=== PATIENT | female | born 1960 | race Caucasian/White ===

== ENCOUNTER 2022-09-04 09:32 | Outpatient (CLI) | payer OTHER | END 2022-09-04 09:33 | disposition home or self-care (01) | LOC: RAD 09:32 | PROVIDERS: ATTEND Internal Medicine Critical Care Medicine | DX: R06.00 Dyspnea, unspecified (principal); R91.8 Other nonspecific abnormal finding of lung field | CPT/HCPCS: 71046 ==

== ENCOUNTER 2023-02-13 02:41 | Inpatient (IN) | payer OTHER, MEDICARE, MEDICAID ==
[2023-02-13 04:09] VITALS: BMI 20.1
[2023-02-13] MEDS ORDERED: Ondansetron PF 4 MG/2 ML Vial IVP PRN (04:12)
[2023-02-13] MEDS ORDERED: Dextrose 50% Abboject 50 ML SYRINGE SLOW IVP PRN (04:12)
[2023-02-13] MEDS ORDERED: Ondansetron ODT 4 MG TAB PO PRN (04:12)
[2023-02-13] MEDS ORDERED: Acetaminophen 650 MG Suppository PR PRN (04:12)
[2023-02-13] MEDS ORDERED: Dextrose 5% in Water 1,000 ML IV PRN (04:12)
[2023-02-13] MEDS ORDERED: Glucagon 1 MG/ML KIT IM PRN (04:12)
[2023-02-13] MEDS: HumaLOG 300 UNITS/3 ML VIAL SC PRN ×4 (04:28→23:07)
[2023-02-13] MEDS ORDERED: Ipratropium/Albuterol 3 ML NEB NEB PRN (06:06)
[2023-02-13] MEDS: Insulin Glargine 30 UNITS/0.3 ML VIAL SC SCH ×3 (06:27→21:47)
[2023-02-13] MEDS ORDERED: Ipratropium/Albuterol 3 ML NEB NEB SCH (06:30)
[2023-02-13 07:37] LABS: #Monocytes 0.6 thou/uL (0.11-0.59); #Neutrophils 5.9 thou/uL (1.40-6.50); %Basophils 0.4 % (0.0-1.0); %Lymphocytes 7.2 % (21.0-51.0); %Neutrophils 84.3 % (42.0-75.0); Hemoglobin 8.5 g/dL (12.0-16.0); Mean Corpuscular HGB CONC 30.4 g/dL (32.0-36.0); Mean Corpuscular Hemoglobin 30.2 pg (27.0-31.0); Mean Corpuscular Volume 99.6 fl (78.0-98.0); Platelet Count 179 10x3/uL (130-400); RBC Distribution Width 14.6 % (11.5-14.5); Red Blood Cell (RBC) Count 2.81 mill/uL (4.20-5.40)
[2023-02-13] MEDS ORDERED: HumaLOG 300 UNITS/3 ML VIAL SC PRN (07:50)
[2023-02-13 08:00] LABS: Anion Gap 17 mmol/L (10-20); BUN (Urea Nitrogen) 45 mg/dL (9.8-20.1); Calc. Creatinine Clearance 12 mL/min (70-130); Calcium 7.9 mg/dL (7.8-10.44); Carbon Dioxide 19 mmol/L (23-31); Chloride 103 mmol/L (98-107); Estimated GFR 11; Iron 31 ug/dL (50-170); Iron Binding Capacity, Total 181 mcg/dL (265-497); Potassium 4.3 mmol/L (3.5-5.1); Sodium 135 mmol/L (136-145)
[2023-02-13 08:02] LABS: Troponin I 0.084 ng/mL (< 0.028)
[2023-02-13 08:08] LABS: Glucose 436 mg/dL (80-115)
[2023-02-13] MEDS: Budesonide 0.5 MG/2 ML NEB NEB SCH ×3 (08:15→18:50)
[2023-02-13] MEDS ORDERED: Arformoterol 15 MCG/2 ML NEB NEB SCH ×2 (08:30→18:30)
[2023-02-13] MEDS: Heparin 5,000 UNITS/ML VIAL SC SCH ×3 (08:58→20:58)
[2023-02-13] MEDS ORDERED: methylPREDNISolone Sod Succ 40 MG VIAL IVP SCH (09:00)
[2023-02-13] MEDS: Ipratropium/Albuterol 3 ML NEB NEB SCH ×5 (10:55→21:35)
[2023-02-13 11:56] LABS: HBSAB Concentration 12.49 mIU/mL; Hep B Surf AB Reactive (NonReactive)
[2023-02-13] MEDS: methylPREDNISolone Sod Succ 40 MG VIAL IVP SCH ×3 (11:56→23:02)
[2023-02-13 11:59] LABS: HBSAg Index 0.22 S/CO (0-0.99); Hep B Core Total Ab Non-Reactive (NonReactive); Hep B Core Total Index 0.07 S/CO (0-0.79); Hep B Surf Ag Non-Reactive S/CO (NonReactive)
[2023-02-13 12:02] LABS: Hep C IgG Ab Non-Reactive S/CO (NonReactive); Hep C Index 0.06 S/CO (0-0.79)
[2023-02-13] MEDS ORDERED: Morphine 2 MG/ML VIAL SLOW IVP PRN (18:25)
[2023-02-13] MEDS: Gabapentin 300 MG CAP PO SCH (20:57)
[2023-02-13] MEDS: cefTRIAXone\\ROCEPHIN 1 GM in Sodium Chloride 0.9% 100 ML IVPB SCH (20:58)
[2023-02-13] MEDS ORDERED: Azithromycin 500 MG in Sodium Chloride 0.9% 250 ML 250 ML IVPB SCH (21:00)
[2023-02-13] MEDS ORDERED: Azithromycin 250 MG TAB PO SCH (21:30)
[2023-02-14] MEDS: Ipratropium/Albuterol 3 ML NEB NEB SCH ×4 (00:28→10:41)
[2023-02-14 03:58] LABS: #Monocytes 0.8 thou/uL (0.11-0.59); #Neutrophils 9.6 thou/uL (1.40-6.50); %Basophils 0.2 % (0.0-1.0); %Lymphocytes 4.6 % (21.0-51.0); %Monocytes 7.4 % (0.0-10.0); %Neutrophils 87.3 % (42.0-75.0); Hematocrit 28.9 % (36.0-47.0); Mean Corpuscular HGB CONC 31.1 g/dL (32.0-36.0); Mean Corpuscular Hemoglobin 30.2 pg (27.0-31.0); Mean Platelet Volume 11.1 fL (7.4-10.4); Platelet Count 177 10x3/uL (130-400); RBC Distribution Width 14.7 % (11.5-14.5); Red Blood Cell (RBC) Count 2.98 mill/uL (4.20-5.40)
[2023-02-14 04:22] LABS: Anion Gap 12 mmol/L (10-20); BUN (Urea Nitrogen) 31 mg/dL (9.8-20.1); Calc. Creatinine Clearance 16 mL/min (70-130); Calcium 8.1 mg/dL (7.8-10.44); Carbon Dioxide 25 mmol/L (23-31); Chloride 101 mmol/L (98-107); Estimated GFR 15; Glucose 184 mg/dL (80-115); Sodium 134 mmol/L (136-145)
[2023-02-14] MEDS: methylPREDNISolone Sod Succ 40 MG VIAL IVP SCH ×3 (05:41→21:18)
[2023-02-14] MEDS: HumaLOG 300 UNITS/3 ML VIAL SC PRN ×2 (05:47→12:02)
[2023-02-14] MEDS: Budesonide 0.5 MG/2 ML NEB NEB SCH (07:09)
[2023-02-14] MEDS ORDERED: EPOETIN ALFA-EPBX (ESRD) 10,000 UNITS/ML VIAL IVP SCH (09:00)
[2023-02-14] MEDS ORDERED: Heparin 10,000 UNITS/ 10 ML VIAL ONE (09:02)
[2023-02-14] MEDS: hydrALAZINE 25 MG TAB PO SCH ×3 (10:54→21:28)
[2023-02-14] MEDS: Sertraline 100 MG TAB PO SCH (10:55)
[2023-02-14] MEDS: Gabapentin 300 MG CAP PO SCH ×2 (10:55→21:27)
[2023-02-14] MEDS: Insulin Glargine 30 UNITS/0.3 ML VIAL SC SCH ×2 (10:55→21:28)
[2023-02-14] MEDS: Magnesium Oxide 250 MG TAB PO SCH (10:55)
[2023-02-14] MEDS: Heparin 5,000 UNITS/ML VIAL SC SCH ×3 (10:56→21:28)
[2023-02-14] MEDS ORDERED: Ipratropium/Albuterol 3 ML NEB NEB PRN (11:00)
[2023-02-14] MEDS: Epoetin (ESRD) 10,000 UNITS/ML VIAL IVP SCH (14:40)
[2023-02-14] MEDS: cefTRIAXone\\ROCEPHIN 1 GM in Sodium Chloride 0.9% 100 ML IVPB SCH (21:14)
[2023-02-14] MEDS: Acetaminophen 325 MG TAB PO PRN (21:40)
[2023-02-14] MEDS: Azithromycin 500 MG in Sodium Chloride 0.9% 250 ML 250 ML IVPB SCH (21:43)
[2023-02-15] MEDS: methylPREDNISolone Sod Succ 40 MG VIAL IVP SCH ×3 (02:10→20:38)
[2023-02-15] MEDS: HumaLOG 300 UNITS/3 ML VIAL SC PRN ×2 (06:40→13:53)
[2023-02-15 06:54] LABS: #Monocytes 0.3 thou/uL (0.11-0.59); #Neutrophils 9.9 thou/uL (1.40-6.50); %Basophils 0.2 % (0.0-1.0); %Lymphocytes 5.2 % (21.0-51.0); %Monocytes 3.1 % (0.0-10.0); Hematocrit 31.8 % (36.0-47.0); Mean Corpuscular HGB CONC 31.4 g/dL (32.0-36.0); Mean Corpuscular Hemoglobin 30.9 pg (27.0-31.0); Mean Corpuscular Volume 98.1 fl (78.0-98.0); Mean Platelet Volume 11.1 fL (7.4-10.4); Platelet Count 202 10x3/uL (130-400); RBC Distribution Width 14.7 % (11.5-14.5); Red Blood Cell (RBC) Count 3.24 mill/uL (4.20-5.40); White Blood Cell (WBC) Count 10.9 10x3/uL (4.8-10.8)
[2023-02-15 07:19] LABS: Anion Gap 13 mmol/L (10-20); BUN (Urea Nitrogen) 27 mg/dL (9.8-20.1); Calc. Creatinine Clearance 17 mL/min (70-130); Calcium 8.2 mg/dL (7.8-10.44); Carbon Dioxide 26 mmol/L (23-31); Chloride 98 mmol/L (98-107); Estimated GFR 16; Glucose 226 mg/dL (80-115); Potassium 4.4 mmol/L (3.5-5.1); Sodium 133 mmol/L (136-145)
[2023-02-15] MEDS: Magnesium Oxide 250 MG TAB PO SCH (08:33)
[2023-02-15] MEDS: hydrALAZINE 25 MG TAB PO SCH ×3 (08:33→20:36)
[2023-02-15] MEDS: Heparin 5,000 UNITS/ML VIAL SC SCH ×3 (08:34→20:37)
[2023-02-15] MEDS: Sertraline 100 MG TAB PO SCH (08:34)
[2023-02-15] MEDS: Gabapentin 300 MG CAP PO SCH ×2 (08:34→20:36)
[2023-02-15] MEDS: Insulin Glargine 30 UNITS/0.3 ML VIAL SC SCH ×2 (08:35→20:39)
[2023-02-15] MEDS: Ipratropium/Albuterol 3 ML NEB NEB SCH ×2 (12:23→18:48)
[2023-02-15] MEDS: Nicotine 14 MG PATCH TD SCH (12:44)
[2023-02-15] MEDS: cefTRIAXone\\ROCEPHIN 1 GM in Sodium Chloride 0.9% 100 ML IVPB SCH (20:29)
[2023-02-15] MEDS: Acetaminophen 325 MG TAB PO PRN (20:38)
[2023-02-15] MEDS: Azithromycin 500 MG in Sodium Chloride 0.9% 250 ML 250 ML IVPB SCH (21:18)
[2023-02-16] MEDS: Ipratropium/Albuterol 3 ML NEB NEB SCH ×3 (01:33→15:20)
[2023-02-16] MEDS: Acetaminophen 325 MG TAB PO PRN (05:36)
[2023-02-16] MEDS: HumaLOG 300 UNITS/3 ML VIAL SC PRN ×2 (05:37→16:53)
[2023-02-16 06:49] LABS: Anion Gap 15 mmol/L (10-20); BUN (Urea Nitrogen) 49 mg/dL (9.8-20.1); Calc. Creatinine Clearance 12 mL/min (70-130); Calcium 8.2 mg/dL (7.8-10.44); Carbon Dioxide 25 mmol/L (23-31); Chloride 98 mmol/L (98-107); Estimated GFR 10; Glucose 265 mg/dL (80-115); Potassium 4.6 mmol/L (3.5-5.1); Sodium 133 mmol/L (136-145)
[2023-02-16] MEDS: Sertraline 100 MG TAB PO SCH (08:17)
[2023-02-16] MEDS: Gabapentin 300 MG CAP PO SCH (08:17)
[2023-02-16] MEDS: hydrALAZINE 25 MG TAB PO SCH ×2 (08:17→15:16)
[2023-02-16] MEDS: Heparin 5,000 UNITS/ML VIAL SC SCH ×2 (08:18→15:16)
[2023-02-16] MEDS: Magnesium Oxide 250 MG TAB PO SCH (08:18)
[2023-02-16] MEDS: Insulin Glargine 30 UNITS/0.3 ML VIAL SC SCH (08:18)
[2023-02-16] MEDS: methylPREDNISolone Sod Succ 40 MG VIAL IVP SCH (08:19)
[2023-02-16] MEDS ORDERED: Lidocaine 4% Patch TD SCH (09:00)
[2023-02-16] MEDS: Epoetin (ESRD) 10,000 UNITS/ML VIAL IVP SCH (14:24)
[2023-02-16] MEDS: Nicotine 14 MG PATCH TD SCH (15:16)
[2023-02-16 16:48] VITALS: BP 158/70; TEMP 98.6
[2023-02-16] MEDS ORDERED: Transdermal Patch Removal TOP SCH (21:00)
== END 2023-02-16 17:30 | disposition home or self-care (01) | DRG 193 ==
LOC: CCU 03:58 → T4-A 02-14 13:33
PROVIDERS: ADMIT Student in an Organized Health Care Education/Training Program; ATTEND Family Medicine
DX: J18.9 Pneumonia, unspecified organism (principal); J96.01 Acute respiratory failure with hypoxia; N18.6 End stage renal disease; J44.1 Chronic obstructive pulmonary disease with (acute) exacerbation; J90 Pleural effusion, not elsewhere classified; E11.22 Type 2 diabetes mellitus with diabetic chronic kidney disease; F17.210 Nicotine dependence, cigarettes, uncomplicated; D63.1 Anemia in chronic kidney disease; E87.70 Fluid overload, unspecified; Z90.49 Acquired absence of other specified parts of digestive tract
CPT/HCPCS: 36415; 36416; 71045; 80048; 82728; 83540; 83550; 84145; 84484; 85025; 86704; 90935; 93306; 94640; 94660; G0257; J0456; J0696; J1644; J1815; J2272; J2920; J3490; J7050; J7620; J7626